=== PATIENT | male | born 2000 | race Caucasian/White ===

== ENCOUNTER 2018-08-20 15:28 | Emergency (ER) | payer OTHER ==
[~2018-08-20] VITALS: Ht 193 cm; Wt 90.9 kg
[2018-08-20] MEDS ORDERED: BACT800T5 PO (15:38)
[2018-08-20 16:45] VITALS: BP 141/69
== END 2018-08-20 16:53 | disposition home or self-care (01) ==
LOC: M ED 15:28
DX: I89.1 Lymphangitis (principal); T50.B15A Adverse effect of smallpox vaccines, initial encounter; Y92.9 Unspecified place or not applicable; Y93.9 Activity, unspecified; Z72.0 Tobacco use

== ENCOUNTER 2019-06-06 14:01 | Emergency (ER) | payer OTHER ==
[~2019-06-06] VITALS: Ht 193 cm; Wt 110.3 kg
[~2019-06-06 14:01] MED LIST: BACT800T5 PO
[2019-06-06 14:02] VITALS: BP 164/88
--- NOTE | 2019-06-06 15:01 | REP ---
Left shoulder three views: The distal clavicle is elevated one shaft width in relation to the distal clavicle. This could be acute or chronic. Correlation with clinical point tenderness is recommended. No fracture is identified. No calcifications or foreign bodies. Mineralization is normal. There is no glenohumeral dislocation. Impression: One shaft width elevation of the distal left clavicle, chronic versus acute. Electronically Signed by Ronny Patel MD 06/06/2019 02:52 P
[2019-06-06] MEDS ORDERED: IBUP-1022 PO (15:20)
== END 2019-06-06 15:47 | disposition home or self-care (01) ==
LOC: M ED 14:01
DX: S43.122A Dislocation of left acromioclavicular joint, 100%-200% displacement, initial encounter (principal); W00.0XXA Fall on same level due to ice and snow, initial encounter; Y92.838 Other recreation area as the place of occurrence of the external cause; Y93.23 Activity, snow (alpine) (downhill) skiing, snowboarding, sledding, tobogganing and snow tubing; Y99.8 Other external cause status